=== PATIENT | female | born 1960 | race African-American/Black ===

== ENCOUNTER 2019-11-06 22:32 | Emergency (ER) | payer MEDICAID ==
[~2019-11-06] VITALS: Ht 165.1 cm; Wt 77.7 kg
[~2019-11-06 22:32] MED LIST: CARI350T PO; DIAZ5TAB PO; DIAZ5TAB4 PO; DULO60CA7 PO; ESCI10TA10 PO; GABA300C10 PO; GABA600T7 PO; HYDR25CA PO; LIDO700A30 TD; OMEP-110 PO; ONDA4TAB13 SL; OXYC-302 PO; OXYC-307 PO; PREG200C PO; SULF1TAB24 PO; TRIA1TAB5 PO; WARF5TAB PO
[2019-11-06 22:35] VITALS: BP 106/76
[2019-11-06] MEDS ORDERED: KETOROLAC 30 MG/1 ML ONE (23:27)
[2019-11-06] MEDS ORDERED: DIAZEPAM 5 MG TABLET ONE (23:27)
[2019-11-06] MEDS ORDERED: DIAZEPAM 5 MG TABLET PO ONE (23:30)
[2019-11-06] MEDS ORDERED: KETOROLAC 30 MG/1 ML IM ONE (23:30)
[2019-11-07] MEDS ORDERED: ONDANSETRON ODT 4 MG ONE (00:16)
[2019-11-07] MEDS ORDERED: HYDROmorphone 1 MG/ML, 1ML INJ ONE (00:17)
[2019-11-07] MEDS ORDERED: ONDANSETRON ODT 4 MG PO ONE (00:30)
[2019-11-07] MEDS ORDERED: HYDROmorphone 1 MG/ML, 1ML INJ IM ONE (00:30)
[2019-11-07] MEDS ORDERED: NEOSPORIN OINT. PKT 1 PACKET ONE (00:50)
== END 2019-11-07 01:14 | disposition home or self-care (01) ==
LOC: ED 11-07 00:03
DX: S39.012A Strain of muscle, fascia and tendon of lower back, initial encounter (principal); I10 Essential (primary) hypertension; Z90.710 Acquired absence of both cervix and uterus; X58.XXXA Exposure to other specified factors, initial encounter; Y93.89 Activity, other specified; Y92.89 Other specified places as the place of occurrence of the external cause; Y99.8 Other external cause status
CPT/HCPCS: 96372; 99283; J1170; J1885; Q0162

== ENCOUNTER 2020-02-19 19:38 | Emergency (ER) | payer MEDICAID ==
[~2020-02-19] VITALS: Ht 167.6 cm; Wt 77.7 kg
--- NOTE | 2020-02-19 20:03 | NUR ---
PT REPORTS NOSE BLEED FROM LEFT SIDE WITH SUBSEQUENT GONZALEZ AND DIZZINESS, PT REPORTS PCP ADVICE TO COME FOR EVAL.
[2020-02-19] MEDS ORDERED: PLEC3TAB PO (20:11)
[2020-02-19] MEDS ORDERED: DEXL60CA2 PO (20:11)
[2020-02-19] MEDS ORDERED: SUVO20TA PO (20:11)
--- NOTE | 2020-02-19 20:13 | NUR ---
ER PROVIDER AT BEDSIDE FOR EVAL.
[2020-02-19] MEDS ORDERED: OXYcodone/APAP 10/325MG TABLET ONE (20:28)
[2020-02-19] MEDS ORDERED: ONDANSETRON ODT 4 MG ONE (20:28)
[2020-02-19] MEDS ORDERED: OXYcodone/APAP 10/325MG TABLET PO ONE (20:30)
[2020-02-19] MEDS ORDERED: ONDANSETRON ODT 4 MG PO ONE (20:30)
[2020-02-19 20:59] LABS: BASOPHILS # (AUTO) 0.05 x10^3/uL (0-0.1); BASOPHILS % (AUTO) 1 % (0-1); EOSINOPHILS # (AUTO) 0.75 x10^3/uL (0-0.4); EOSINOPHILS % (AUTO) 15 % (1-7); LYMPHOCYTES # (AUTO) 2.18 x10^3/uL (1-3.4); LYMPHOCYTES % (AUTO) 43 % (22-44); MD NO; MEAN CORPUSCULAR HEMOGLOBIN 26.5 pg (27.0-34.8); MEAN CORPUSCULAR HGB CONC 32.2 g/dL (32.4-35.8); MEAN CORPUSCULAR VOLUME 82.3 fL (80-100); MEAN PLATELET VOLUME 8.1 fL (7.4-10.4); MONOCYTES % (AUTO) 8 % (2-9); NEUTROPHILS # (AUTO) 1.67 x10^3/uL (1.8-6.8); NEUTROPHILS % (AUTO) 33 % (42-75); PLATELET COUNT 336 x10^3/uL (130-400); RED BLOOD COUNT 4.22 x10^6/uL (3.82-5.3); RED CELL DISTRIBUTION WIDTH 15.4 % (9.6-15.2)
[2020-02-19 21:10] LABS: ALANINE AMINOTRANSFERASE 41 U/L (12-78); ALBUMIN 3.3 g/dL (3.4-5.0); ANION GAP 5 mmol/L (5-15); CALCIUM 9.3 mg/dL (8.5-10.1); CHLORIDE 108 mmol/L (98-107); CREATININE 0.83 mg/dL (0.55-1.02)
[2020-02-19 21:14] LABS: ALKALINE PHOSPHATASE 72 U/L (45-117); BILIRUBIN,TOTAL 0.2 mg/dL (0.2-1.0); TOTAL PROTEIN 7.6 g/dL (6.4-8.2); TROPONIN I < 0.015 ng/mL (0.000-0.045)
[2020-02-19] MEDS ORDERED: ACETAMINOPHEN 500 MG TABLET ONE (21:29)
[2020-02-19] MEDS ORDERED: ACETAMINOPHEN 500 MG TABLET PO ONE (21:30)
[2020-02-19] MEDS ORDERED: ONDANSETRON ODT 8 MG PO ONE (21:30)
--- NOTE | 2020-02-19 21:38 | NUR ---
MEDICATED PER MAR, PT TO CT SCAN.
[2020-02-19] MEDS ORDERED: ONDANSETRON ODT 8 MG ONE (21:59)
[2020-02-19 22:45] VITALS: BP 129/82
== END 2020-02-19 23:10 | disposition home or self-care (01) ==
LOC: ED 20:40
DX: R51 Headache (principal); R60.0 Localized edema; I10 Essential (primary) hypertension; R42 Dizziness and giddiness; R07.89 Other chest pain; R06.02 Shortness of breath; Z86.718 Personal history of other venous thrombosis and embolism
CPT/HCPCS: 36415; 70450; 71045; 80053; 83880; 84484; 85025; 99285; Q0162

== ENCOUNTER 2020-12-29 18:09 | Emergency (ER) | payer MEDICAID ==
[~2020-12-29] VITALS: Ht 165.1 cm; Wt 73.0 kg
[~2020-12-29 18:09] MED LIST changes: +DEXL60CA2 PO; -OXYC-302 PO; -OXYC-307 PO; +OXYC-380 PO; +OXYC1TAB14 PO; +PLEC3TAB2 PO; +SUVO20TA PO; -WARF5TAB PO; +WARF5TAB2 PO
--- NOTE | 2020-12-29 18:18 | NUR ---
PT BIBA. PER EMS PT HAD A MECHANICAL GLF TODAY AROUND 1730 AND NOW IS HAVING GENERALIZED PAIN/ GONZALEZ/ NAUSEA. PER EMS PT WAS ABLE TO STAND TO GET IN THEIR GURNEY BUT STATED IT MADE THE PAIN WORSE. PT RESTING IN GURNEY, MONITORING IN PLACE, EKG DONE, DR. CRESPO AT BEDSIDE, [facility].
--- NOTE | 2020-12-29 18:18 | NUR ---
PT STATES SHE HAD +LOC FOR A COUPLE MINUTES AFTER FALL.
[2020-12-29] MEDS ORDERED: OXYcodone/APAP 10/325MG TABLET ONE (18:23)
[2020-12-29] MEDS ORDERED: OXYcodone/APAP 10/325MG TABLET PO ONE (18:30)
[2020-12-29 19:20] LABS: MEAN CORPUSCULAR HEMOGLOBIN 25.2 pg (27.0-34.8); MEAN CORPUSCULAR HGB CONC 32.4 g/dL (32.4-35.8); PLATELET COUNT 331 x10^3/uL (130-400); RED BLOOD COUNT 3.82 x10^6/uL (3.82-5.3); RED CELL DISTRIBUTION WIDTH 15.9 % (9.6-15.2)
[2020-12-29 19:29] LABS: MD YES
[2020-12-29 19:31] LABS: ALBUMIN 3.4 g/dL (3.4-5.0); ANION GAP 9 mmol/L (5-15); CHLORIDE 106 mmol/L (98-107); CREATININE 0.78 mg/dL (0.55-1.02)
[2020-12-29 19:47] LABS: ANISOCYTOSIS 1+; BASOS#(MANUAL) 0.05 x10^3/uL (0-0.1); BASOS% (MANUAL) 1 % (0-1); EOS#(MANUAL) 0.49 x10^3/uL (0.0-0.4); EOS% (MANUAL) 9 % (1-7); HYPOCHROMIA 1+; LYMPH#(MANUAL) 2.54 x10^3/uL (1-3.4); LYMPHS% (MANUAL) 47 % (22-44); MICROCYTOSIS 1+; MONOS#(MANUAL) 0.38 x10^3/uL (0.3-2.7); MONOS% (MANUAL) 7 % (2-9); SEG#(MANUAL) 1.94 x10^3/uL (1.8-6.8); SEGS% (MANUAL) 36 % (42-75)
[2020-12-29 19:48] LABS: <PLATELET ESTIMATE> ADEQUATE; <PLT MORPHOLOGY> NORMAL PLT MORPH; OVALOCYTES 1+
--- NOTE | 2020-12-29 19:57 | NUR ---
BREAK RN: PT. TO BR VIA W/C AND BACK TO [facility].
[2020-12-29 20:11] VITALS: BP 150/90
--- NOTE | 2020-12-29 20:14 | NUR ---
PT ABLE TO AMBULATE STEADILY FROM BATHROOM TO GURNEY.
== END 2020-12-29 20:50 | disposition home or self-care (01) ==
LOC: ED 18:39
DX: S09.90XA Unspecified injury of head, initial encounter (principal); M25.511 Pain in right shoulder; R07.9 Chest pain, unspecified; R55 Syncope and collapse; I10 Essential (primary) hypertension; Z86.718 Personal history of other venous thrombosis and embolism; Z98.61 Coronary angioplasty status; Z90.710 Acquired absence of both cervix and uterus; W01.0XXA Fall on same level from slipping, tripping and stumbling without subsequent striking against object, initial encounter; Y93.89 Activity, other specified; Y92.242 Post office as the place of occurrence of the external cause; Y99.8 Other external cause status
CPT/HCPCS: 36415; 70450; 71045; 72125; 80048; 82040; 85025; 93005; 99285